=== PATIENT | male | born 1985 | race Hispanic/Latino ===

== ENCOUNTER 2018-04-21 15:53 | Emergency (ER) | payer SELFPAY ==
[2018-04-21] MEDS ORDERED: LIDOCAINE 1% MPF 2 ML AMPULE ONE (16:16)
--- NOTE | 2018-04-21 16:28 | ER ---
Nurse's Notes [facility] Name: William Gandhi Age: 32 yrs Sex: Male : 1985 Arrival Date: 04/21/2018 Time: 15:56 Bed 14 Private MD: Diagnosis: Laceration without foreign body of left hand Presentation: 04/21 16:07 Presenting complaint: Patient states: laceration to the left palm with knife. sv Transition of care: patient was not received from another setting of care. Complicating Factors: There are no complicating factors for this patient. Onset of symptoms was April 21, 2018 at 15:00. Care prior to arrival: None. 16:07 Method Of Arrival: Ambulatory sv 16:07 Acuity: RADHA 4 sv 16:30 Risk Assessment: Do you want to hurt yourself or someone else? Patient reports no ph desire to harm self or others. Initial Sepsis Screen: Does the patient meet any 2 criteria? No. Patient's initial sepsis screen is negative. Does the patient have a suspected source of infection? No. Patient's initial sepsis screen is negative. Historical: - Allergies: 16:07 PENICILLINS; sv - Immunization history:: Adult Immunizations up to date, Last tetanus immunization: < 10 years ago. - Social history:: Smoking status: Patient/guardian denies using tobacco. - Ebola Screening: : No symptoms or risks identified at this time. Screenin:30 Abuse screen: Denies threats or abuse. Denies injuries from another. Nutritional ph screening: No deficits noted. Tuberculosis screening: No symptoms or risk factors identified. Fall Risk None identified. Assessment: 16:15 General: Appears in no apparent distress. comfortable, well groomed, Behavior is calm, ph cooperative, appropriate for age. Pain: Complains of pain in palm of left hand. Neuro: Level of Consciousness is awake, alert, obeys commands, Oriented to person, place, time, situation. Cardiovascular: Capillary refill < 3 seconds Patient's skin is warm and dry. Respiratory: Airway is patent Respiratory effort is even, unlabored. Derm: Skin is healthy with good turgor, Skin is pink, warm \T\ dry. Musculoskeletal: Circulation, motion, and sensation intact. Range of motion: intact in all extremities. Injury Description: Laceration sustained to palm of left hand is clean, 0.5 to 2.5 cm long, is bleeding a small amount. 16:52 Reassessment: Patient appears in no apparent distress at this time. Patient and/or ph family updated on plan of care and expected duration. Pain level reassessed. Patient is alert, oriented x 3, equal unlabored respirations, skin warm/dry/pink. D/C pending 15 min shot time. Vital Signs: 16:08 BP 147 / 89; Pulse 71; Resp 18; Pulse Ox 98% ; sv ED Course: 15:56 Patient arrived in ED. as 16:06 [facility]. kb 16:06 Lida Jaime MD is Attending Physician. kb 16:07 Triage completed. sv 16:10 Erin Syed, RN is Primary Nurse. ph 16:25 Assist provider with laceration repair on palm of left hand that was 2.5 cm. or less ph using sutures. Set up tray. Performed by Tori SYED Patient tolerated well. 16:30 Patient has correct armband on for positive identification. Bed in low position. Call ph light in reach. 16:51 Arm band placed on. ph 17:20 Patient did not have IV access during this emergency room visit. ph Administered Medications: 16:20 Drug: Lidocaine (1 %) 1 vials Volume: 5 ml; Route: Infiltration; ph 16:50 Drug: Tetanus-Diphtheria Toxoid Adult 0.5 ml {Events Intern: [email or web address]. Exp: ph 04/28/2020. Lot #: [id number]. } Route: IM; Site: right deltoid; Outcome: 16:27 Discharge ordered by MD. kb 17:20 Patient left the ED. ph 17:20 Discharged to home ambulatory, with significant other. ph 17:20 Condition: good 17:20 Discharge instructions given to patient, Instructed on discharge instructions, follow up and referral plans. wound care, Demonstrated understanding of instructions, follow-up care, wound care. Signatures: Tori Delong FNP-C FNP-Audrey Urias RN RN sv Martinez, Amelia as Erin Syed RN RN
--- NOTE | 2018-04-21 16:28 | EDPHYS ---
Physician Documentation [facility] Name: William Gandhi Age: 32 yrs Sex: Male : 1985 Arrival Date: 04/21/2018 Time: 15:56 Bed 14 Private MD: ED Physician Lida Jaime HPI: 04/21 16:46 This 32 yrs old Male presents to ER via Ambulatory with complaints of kb Laceration To Hand. 16:46 The patient has a laceration related to: putting a knife back in its case occurred at home, and there are no complicating factors. The injury was accidental. The laceration(s) is(are) located on the palm of left hand. Onset: The symptoms/episode began/occurred just prior to arrival. Associated signs and symptoms: The patient has no apparent associated signs or symptoms. The patient has not experienced similar symptoms in the past. The patient has not recently seen a physician. Historical: - Allergies: 16:07 PENICILLINS; sv - Immunization history:: Adult Immunizations up to date, Last tetanus immunization: < 10 years ago. - Social history:: Smoking status: Patient/guardian denies using tobacco. - Ebola Screening: : No symptoms or risks identified at this time. ROS: 16:45 Constitutional: Negative for fever, chills, and weight loss, Cardiovascular: Negative kb for chest pain, palpitations, and edema, Respiratory: Negative for shortness of breath, cough, wheezing, and pleuritic chest pain, Abdomen/GI: Negative for abdominal pain, nausea, vomiting, diarrhea, and constipation, MS/Extremity: Negative for injury and deformity, Neuro: Negative for headache, weakness, numbness, tingling, and seizure. 16:45 Skin: Positive for of the palm of left hand. Exam: 16:45 Constitutional: This is a well developed, well nourished patient who is awake, alert, kb and in no acute distress. Head/Face: Normocephalic, atraumatic. Chest/axilla: Normal chest wall appearance and motion. Nontender with no deformity. No lesions are appreciated. Cardiovascular: Regular rate and rhythm with a normal S1 and S2. No gallops, murmurs, or rubs. Normal PMI, no JVD. No pulse deficits. Respiratory: Lungs have equal breath sounds bilaterally, clear to auscultation and percussion. No rales, rhonchi or wheezes noted. No increased work of breathing, no retractions or nasal flaring. Abdomen/GI: Soft, non-tender, with normal bowel sounds. No distension or tympany. No guarding or rebound. No evidence of tenderness throughout. MS/ Extremity: Pulses equal, no cyanosis. Neurovascular intact. Full, normal range of motion. Neuro: Awake and alert, GCS 15, oriented to person, place, time, and situation. Cranial nerves II-XII grossly intact. Motor strength 5/5 in all extremities. Sensory grossly intact. Cerebellar exam normal. Normal gait. 16:45 Skin: injury, laceration(s), the wound is approximately 3 cm(s), of the palm of left hand, that can be described as clean, no foreign body, linear, without bleeding. Vital Signs: 16:08 BP 147 / 89; Pulse 71; Resp 18; Pulse Ox 98% ; sv Laceration: 16:25 Wound Repair of 3cm ( 1.2in ) subcutaneous laceration to palm of left hand. Linear kb shaped.. Distal neuro/vascular/tendon intact. Anesthesia: Wound infiltrated with 2 mls of 1% lidocaine. Wound prep: Extensive cleansing with betadine by me, Wound irrigation with saline by me. Skin closed with 3 5-0 Prolene using interrupted sutures and sterile technique. Dressed with Neosporin, bandaid. Patient tolerated well. MDM: 16:06 Patient medically screened. kb 16:25 Data reviewed: vital signs, nurses notes. Data interpreted: Pulse oximetry: on room air kb is 98 %. Interpretation: normal. Counseling: I had a detailed discussion with the patient and/or guardian regarding: the historical points, exam findings, and any diagnostic results supporting the discharge/admit diagnosis, the need for outpatient follow up, a family practitioner, to return to the emergency department if symptoms worsen or persist or if there are any questions or concerns that arise at home. 04/21 16:08 Order name: Prolene, Sutures; Complete Time: 16:43 kb 04/21 16:08 Order name: Dressing - Wound; Complete Time: 16:43 kb 04/21 16:08 Order name: Gloves, Sterile; Complete Time: 16:43 kb 04/21 16:08 Order name: Setup Suture Tray; Complete Time: 16:43 kb Administered Medications: 16:20 Drug: Lidocaine (1 %) 1 vials Volume: 5 ml; Route: Infiltration; ph 16:50 Drug: Tetanus-Diphtheria Toxoid Adult 0.5 ml {[employer]: [employer]. Exp: ph 04/28/2020. Lot #: [id number]. } Route: IM; Site: right deltoid; Disposition: 18:46 Co-signature as Attending Physician, Lida Jaime MD. ma2 Disposition: 04/21/18 16:27 Discharged to Home. Impression: Laceration without foreign body of left hand. - Condition is Stable. - Discharge Instructions: Laceration Care, Adult, [id number]. - Medication Reconciliation Form, Thank You Letter, Antibiotic Education, Prescription Opioid Use form. - Follow up: Emergency Department; When: As needed; Reason: Worsening of condition. Follow up: Private Physician; When: 2 - 3 days; Reason: Recheck today's complaints, Continuance of care, Re-evaluation by your physician. Signatures: Tori Delong, Audrey Brooks RN RN Erin Syed RN RN Lida Jaime MD MD ma2 Corrections: (The following items were deleted from the chart) 17:20 16:27 04/21/2018 16:27 Discharged to Home. Impression: Laceration without foreign body ph of left hand. Condition is Stable. Forms are Medication Reconciliation Form, Thank You Letter, Antibiotic Education, Prescription Opioid Use. Follow up: Emergency Department; When: As needed; Reason: Worsening of condition. Follow up: Private Physician; When: 2 - 3 days; Reason: Recheck today's complaints, Continuance of care, Re-evaluation by your physician. kb
[2018-04-21] MEDS ORDERED: TETANUS & DIPHTHERIA TOX,ADULT 0.5 ML VIAL ONE (16:52)
== END 2018-04-21 17:20 | disposition home or self-care (01) ==
LOC: ER 15:53
PROC: 0JQK0ZZ Repair Left Hand Subcutaneous Tissue and Fascia, Open Approach (ICD-10-PCS; principal; 2018-04-21)
DX: S61.412A Laceration without foreign body of left hand, initial encounter (principal); W26.0XXA Contact with knife, initial encounter; Y93.89 Activity, other specified; Y92.9 Unspecified place or not applicable; Z23 Encounter for immunization; Z88.0 Allergy status to penicillin
CPT/HCPCS: 90714; 99283; J2001

== ENCOUNTER 2021-11-12 14:49 | Emergency (ER) | payer SELFPAY ==
[2021-11-12] MEDS ORDERED: ONDANSETRON 4 MG (ODT) TAB ONE (16:06)
[2021-11-12 17:02] LABS: SARS-COV-2 RT PCR NEGATIVE (NEGATIVE)
[2021-11-12] MEDS ORDERED: KETOROLAC 30 MG/ML INJ ONE (18:18)
[2021-11-12] MEDS ORDERED: METOCLOPRAMIDE 10 MG/2mL INJ ONE (18:18)
[2021-11-12] MEDS ORDERED: DIPHENHYDRAMINE 50 MG/ML VIAL ONE (18:18)
[2021-11-12] MEDS ORDERED: NA CHLORIDE 0.9% 1,000 ML ONE (18:18)
[2021-11-12] MEDS ORDERED: NA CHLORIDE 0.9% 50 ML ONE (18:19)
[2021-11-12 18:37] LABS: Potassium 3.8 mmol/L (3.5-5.1)
--- NOTE | 2021-11-12 19:39 | ER ---
Nurse's Notes [facility] Name: William Gandhi Age: 36 yrs Sex: Male : 1985 Arrival Date: 11/12/2021 Time: 14:58 Bed 9 Private MD: Diagnosis: Vomiting;Diarrhea, unspecified Presentation: 11/12 15:30 Chief complaint: Patient states: he believes he has food poisoning due to reported ap3 diarrhea, nausea and vomiting that began Thursday11/10/20. Patient denies being around anyone who has been sick. Coronavirus screen: At this time, the client does not indicate any symptoms associated with coronavirus-19. Ebola Screen: No symptoms or risks identified at this time. Initial Sepsis Screen: Does the patient meet any 2 criteria? No. Patient's initial sepsis screen is negative. Does the patient have a suspected source of infection? No. Patient's initial sepsis screen is negative. Risk Assessment: Do you want to hurt yourself or someone else? Patient reports no desire to harm self or others. Onset of symptoms was November 10, 2021. 15:30 Method Of Arrival: Ambulatory ap3 15:30 Acuity: RADHA 3 ap3 Triage Assessment: 15:32 General: Appears in no apparent distress. Behavior is calm, cooperative, appropriate ap3 for age. Pain: Complains of pain in head and stomach Pain currently is 7 out of 10 on a pain scale. Neuro: Level of Consciousness is awake, alert, obeys commands, Oriented to person, place, time, situation, Appropriate for age Speech is normal. Cardiovascular: Patient's skin is warm and dry. Respiratory: Airway is patent Respiratory effort is even, unlabored. GI: Reports diarrhea, intolerance of fluids, intolerance of food, nausea, vomiting. Historical: - Allergies: 15:32 PENICILLINS; ap3 - Home Meds: 15:32 None [Active]; ap3 - PMHx: 15:32 None; ap3 - Immunization history:: Client reports having NOT received the Covid vaccine. Flu vaccine is not up to date. - Social history:: Smoking status: Patient denies any tobacco usage or history of. Patient uses alcohol, occasionally. Screenin:33 Abuse screen: Denies threats or abuse. Nutritional screening: Has had N/V for 3 or more ap3 days. Tuberculosis screening: No symptoms or risk factors identified. 18:31 Fall Risk IV access (20 points). Total Johnson Fall Scale indicates No Risk (0-24 pts). ll1 Assessment: 16:05 Reassessment: No changes from previously documented assessment. Patient and/or family ll1 updated on plan of care and expected duration. Pain level reassessed. Patient is alert, oriented x 3, equal unlabored respirations, skin warm/dry/pink. 17:00 Reassessment: No changes from previously documented assessment. Patient and/or family ll1 updated on plan of care and expected duration. Pain level reassessed. Patient is alert, oriented x 3, equal unlabored respirations, skin warm/dry/pink. 18:00 Reassessment: No changes from previously documented assessment. Patient and/or family ll1 updated on plan of care and expected duration. Pain level reassessed. Patient states symptoms have not improved. Dennis Shrestha notified of nausea and FOWLER. . 18:33 Reassessment: No changes from previously documented assessment. Patient and/or family ll1 updated on plan of care and expected duration. Pain level reassessed. Patient is alert, oriented x 3, equal unlabored respirations, skin warm/dry/pink. 18:54 Reassessment: No changes from previously documented assessment. Patient and/or family ll1 updated on plan of care and expected duration. Pain level reassessed. Patient is alert, oriented x 3, equal unlabored respirations, skin warm/dry/pink. 20:02 Reassessment: Patient is alert, oriented x 3, equal unlabored respirations, skin bb warm/dry/pink. pt verbalized understanding of and agrees to plan of care discharge instructions given pt ambulated with steady gait to exit accompanied by family Patient states feeling better. Patient states symptoms have improved. Vital Signs: 15:30 BP 140 / 99; Pulse 106; Resp 17; Temp 98.8; Pulse Ox 100% ; Weight 74.84 kg; Height 5 ap3 ft. 4 in. (162.56 cm); 20:03 BP 126 / 81; Pulse 66; Resp 16 S; Pulse Ox 95% on R/A; bb 15:30 Body Mass Index 28.32 (74.84 kg, 162.56 cm) ap3 ED Course: 14:58 Patient arrived in ED. am2 15:32 Triage completed. ap3 15:33 Arm band placed on left wrist. ap3 15:34 Sohail [facility]restha [facility]. pm1 15:34 Purnima Rios MD is Attending Physician. pm1 15:38 Stephanie Anthony RN is Primary Nurse. ll1 18:20 Inserted saline lock: 22 gauge in right antecubital area, using aseptic technique. ll1 Blood collected. 18:31 Patient has correct armband on for positive identification. Bed in low position. Call ll1 light in reach. Cardiac monitoring not applicable on this patient. 20:02 No provider procedures requiring assistance completed. IV discontinued, intact, bb bleeding controlled, No redness/swelling at site. Pressure dressing applied. Administered Medications: 16:05 Drug: Ondansetron 4 mg Route: PO; ll1 18:32 Follow up: Response: No adverse reaction; Nausea unchanged; RASS: Alert and Calm (0) ll1 18:32 Drug: NS 0.9% 1000 ml Route: IV; Rate: 1000 ml; Site: right antecubital; ll1 18:32 Drug: Ketorolac 30 mg {Note: pain 7/10.} Route: IVP; Site: right antecubital; ll1 18:45 Follow up: Response: No adverse reaction; Pain is decreased; RASS: Alert and Calm (0) ll1 18:33 Drug: Reglan (metoCLOPramide) 10 mg Route: IVP; Site: right antecubital; ll1 18:45 Follow up: Response: No adverse reaction; Nausea is decreased; RASS: Alert and Calm (0) ll1 18:33 Drug: Benadryl (diphenhydrAMINE) 12.5 mg Route: IVP; Site: right antecubital; ll1 18:45 Follow up: Response: No adverse reaction; RASS: Alert and Calm (0) ll1 Outcome: 19:38 Discharge ordered by MD. pm1 20:02 Discharged to home ambulatory, with family. bb 20:02 Condition: stable 20:02 Discharge instructions given to patient, Instructed on discharge instructions, follow up and referral plans. medication usage, Demonstrated understanding of instructions, follow-up care, medications, Prescriptions given X 3. 20:03 Patient left the ED. bb Signatures: Ebony Segovia RN RN bb Sohail Shrestha NP [employer] SUPERVISOR pm1 Jody Wynn am2 Jody Rizzo, RN RN ap3 Stephanie Anthony RN RN ll1 Corrections: (The following items were deleted from the chart) 18:31 15:30 Reassessment: No changes from previously documented assessment. Patient and/or ll1 family updated on plan of care and expected duration. Pain level reassessed. Patient is alert, oriented x 3, equal unlabored respirations, skin warm/dry/pink. ll1
--- NOTE | 2021-11-12 19:39 | EDPHYS ---
Physician Documentation [facility] Name: William Gandhi Age: 36 yrs Sex: Male : 1985 Arrival Date: 11/12/2021 Time: 14:58 Bed 9 Private MD: ED Physician Purnima Rios HPI: 11/12 16:06 This 36 yrs old Male presents to ER via Ambulatory with complaints of Flu pm1 Symptoms. 16:06 The patient presents to the emergency department with nausea, vomiting, diarrhea. pm1 Onset: The symptoms/episode began/occurred 3 day(s) ago. Possible causes: unknown. The symptoms are aggravated by food , The symptoms are alleviated by nothing. Associated signs and symptoms: Pertinent positives: Abdominal cramping, Pertinent negatives: dysuria, fever. Severity of symptoms: in the emergency department the symptoms are worse. The patient has not experienced similar symptoms in the past. The patient has not recently seen a physician. Historical: - Allergies: 15:32 PENICILLINS; ap3 - Home Meds: 15:32 None [Active]; ap3 - PMHx: 15:32 None; ap3 - Immunization history:: Client reports having NOT received the Covid vaccine. Flu vaccine is not up to date. - Social history:: Smoking status: Patient denies any tobacco usage or history of. Patient uses alcohol, occasionally. ROS: 16:06 Constitutional: Negative for fever, chills, and weight loss, Cardiovascular: Negative pm1 for chest pain, palpitations, and edema, Respiratory: Negative for shortness of breath, cough, wheezing, and pleuritic chest pain. 16:06 Back: Negative for injury and pain, : Negative for injury, bleeding, discharge, and swelling, MS/Extremity: Negative for injury and deformity, Skin: Negative for injury, rash, and discoloration, Neuro: Negative for headache, weakness, numbness, tingling, and seizure. 16:06 Abdomen/GI: Positive for abdominal pain, nausea, vomiting, and diarrhea, Negative for constipation. 16:06 All other systems are negative. Exam: 16:06 Constitutional: This is a well developed, well nourished patient who is awake, alert, pm1 and in no acute distress. Head/Face: Normocephalic, atraumatic. 16:06 Back: No spinal tenderness. No costovertebral tenderness. Full range of motion. Skin: Warm, dry with normal turgor. Normal color with no rashes, no lesions, and no evidence of cellulitis. MS/ Extremity: Pulses equal, no cyanosis. Neurovascular intact. Full, normal range of motion. 16:06 Cardiovascular: Exam negative for acute changes, Rate: normal, Rhythm: regular, Pulses: no pulse deficits are appreciated. 16:06 Respiratory: Exam negative for acute changes, respiratory distress, shortness of breath. 16:06 Abdomen/GI: Inspection: abdomen appears normal, Palpation: abdomen is soft and non-tender, in all quadrants. 16:06 Neuro: Exam negative for acute changes, Orientation: is normal, Mentation: is normal, Motor: is normal, moves all fours. Vital Signs: 15:30 BP 140 / 99; Pulse 106; Resp 17; Temp 98.8; Pulse Ox 100% ; Weight 74.84 kg; Height 5 ap3 ft. 4 in. (162.56 cm); 20:03 BP 126 / 81; Pulse 66; Resp 16 S; Pulse Ox 95% on R/A; bb 15:30 Body Mass Index 28.32 (74.84 kg, 162.56 cm) ap3 MDM: 15:37 Patient medically screened. pm1 16:06 ED course: Patient offered IV fluids but refused. Will give antiemetic and PO challenge.pm1 16:06 Differential diagnosis: gastritis, viral gastroenteritis, influenza, covid. pm1 19:38 Data reviewed: vital signs. Data interpreted: Pulse oximetry: on room air is 100 %. pm1 Interpretation: normal. Counseling: I had a detailed discussion with the patient and/or guardian regarding: the historical points, exam findings, and any diagnostic results supporting the discharge/admit diagnosis, lab results, the need for outpatient follow up, to return to the emergency department if symptoms worsen or persist or if there are any questions or concerns that arise at home. 11/12 15:35 Order name: Strep; Complete Time: 16:43 pm1 11/12 15:35 Order name: COVID-19/FLU A+B (Document "Date of Onset" if Symptomatic); Complete Time: pm1 17:05 11/12 16:44 Order name: Throat Culture EDMD 11/12 18:10 Order name: Basic Metabolic Panel; Complete Time: 19:36 ll1 11/12 17:40 Order name: PO challenge; Complete Time: 17:52 pm1 11/12 18:04 Order name: IV Saline Lock; Complete Time: 18:32 pm1 Administered Medications: 16:05 Drug: Ondansetron 4 mg Route: PO; 1 18:32 Follow up: Response: No adverse reaction; Nausea unchanged; RASS: Alert and Calm (0) 1 18:32 Drug: NS 0.9% 1000 ml Route: IV; Rate: 1000 ml; Site: right antecubital; 1 18:32 Drug: Ketorolac 30 mg {Note: pain 7/10.} Route: IVP; Site: right antecubital; [facility] 18:45 Follow up: Response: No adverse reaction; Pain is decreased; RASS: Alert and Calm (0) [facility] 18:33 Drug: Reglan (metoCLOPramide) 10 mg Route: IVP; Site: right antecubital; [facility] 18:45 Follow up: Response: No adverse reaction; Nausea is decreased; RASS: Alert and Calm (0) [facility] 18:33 Drug: Benadryl (diphenhydrAMINE) 12.5 mg Route: IVP; Site: right antecubital; [facility] 18:45 Follow up: Response: No adverse reaction; RASS: Alert and Calm (0) [facility] Disposition Summary: 11/12/21 19:38 Discharge Ordered Location: Home pm1 Problem: new pm1 Symptoms: have improved pm1 Condition: Stable pm1 Diagnosis - Vomiting pm1 - Diarrhea, unspecified pm1 Followup: pm1 - With: Emergency Department - When: As needed - Reason: Worsening of condition Followup: pm1 - With: Private Physician - When: 2 - 3 days - Reason: Recheck today's complaints, Continuance of care, Re-evaluation by your physician Discharge Instructions: - Discharge Summary Sheet pm1 - Food Choices to Help Relieve Diarrhea, Adult pm1 - Diarrhea, Adult pm1 - Viral Gastroenteritis, Adult pm1 - Vomiting, Adult pm1 Forms: - Medication Reconciliation Form pm1 - Thank You Letter pm1 - Antibiotic Education pm1 - Prescription Opioid Use pm1 Prescriptions: - promethazine 25 mg Rectal suppository - insert 1 suppository by RECTAL route every 6 hours As needed; 12 suppository; pm1 Refills: 0, Product Selection Permitted - promethazine 25 mg Oral Tablet - take 1 tablet by ORAL route every 6 hours As needed; 20 tablet; Refills: 0, pm1 Product Selection Permitted - dicyclomine 20 mg Oral Tablet - take 1 tablet by ORAL route every 6 hours As needed; 20 tablet; Refills: 0, pm1 Product Selection Permitted Signatures: Dispatcher [employer] Sohail Norman NP SUPERVISOR [employer]KING pm1 Jody Rizzo RN RN ap3 Stephanie Anthony RN RN ll1
[2021-11-13 10:15] VITALS: TEMP 98.8
[2021-11-13 10:16] VITALS: BP 126/81; O2SAT 95
== END 2021-11-12 20:03 | disposition home or self-care (01) ==
LOC: ER 14:49
DX: R11.10 Vomiting, unspecified (principal); R19.7 Diarrhea, unspecified; R10.9 Unspecified abdominal pain; Z20.822 Contact with and (suspected) exposure to COVID-19; Z88.0 Allergy status to penicillin
CPT/HCPCS: 0240U; 36415; 80048; 87070; 87081; 96374; 96375; 99284; J1200; J2765; J7030